=== PATIENT | male | born 2000 | race Caucasian/White ===

== ENCOUNTER 2023-04-15 16:21 | Outpatient (REF) | payer OTHER, SELFPAY ==
[2023-04-15 16:39] LABS: MANUAL DIFF FLAG NO
[2023-04-15 17:00] LABS: Basophils Percent Auto 0.4 % (0-2); Eosinophils Absolute Auto 0.1 X10*3/uL (0.0-0.4); Hemoglobin 14.9 g/dl (14.0-18.0); Imm Gran Abs Auto 0.01 X10*3/uL (0.00-0.03); Imm Gran Pct Auto 0.1 % (0.0-0.4); Lymphocytes Absolute Auto 1.9 X10*3/uL (1.2-4.9); Mean Corpuscular HGB Conc 34.7 g/dl (31.0-36.0); Mean Corpuscular Hemoglobin 30.7 pg (27.0-33.0); Mean Corpuscular Volume 88.7 fL (80.0-98.0); Mean Platelet Volume 10.6 fL (9.4-12.4); Monocytes Absolute Auto 0.4 X10*3/uL (0.1-1.2); Monocytes Percent Auto 4.6 % (2-11); Neutrophils Absolute Auto 5.9 x10*3/uL (2.0-8.3); Neutrophils Percent Auto 70.9 % (45-73); Platelet Count 203 X10*3/uL (160-400); Red Blood Count 4.85 X10*6/uL (4.60-5.80); Red Cell Distribution Width 11.6 % (11.0-16.0); White Blood Count 8.4 X10*3/uL (4.8-10.8)
[2023-04-15 17:26] LABS: Alanine Aminotransferase 14 U/L (0-40); Albumin Level 4.6 g/dL (3.5-5.0); Alkaline Phosphatase 67 U/L (39-117); Anion Gap 12 (12-20); Aspartate Amino Transferase 15 U/L (5-37); Bilirubin Total 0.5 mg/dL (0.0-1.0); Blood Urea Nitrogen 21 mg/dL (9-16); Calcium 9.5 mg/dL (8.4-10.2); Carbon Dioxide 26 mmol/L (22-29); Chloride 108 mmol/L (96-108); Cholesterol 154 mg/dL (<200); Estimated Glomerular Filt Rate > 60; Glucose Random 113 mg/dL (60-115); Potassium 3.7 mmol/L (3.3-5.1); Sodium 142 mmol/L (135-145)
[2023-04-15 17:40] LABS: Free T4 (Free Thyroxine) 0.84 ng/dL (0.71-1.85); Thyroid Stimulating Hormone 0.61 uIU/mL (0.32-4.0)
== END 2023-04-15 16:22 | disposition home or self-care (01) ==
LOC: HO.LAB 16:21
PROVIDERS: PCP Internal Medicine; Visit Provider Internal Medicine
DX: R63.4 Abnormal weight loss (principal); R00.2 Palpitations; M19.049 Primary osteoarthritis, unspecified hand
CPT/HCPCS: 36415; 80053; 82465; 84439; 84443; 85025

== ENCOUNTER 2023-08-25 14:40 | Outpatient (REF) | payer OTHER, SELFPAY ==
[2023-08-25 15:38] LABS: Estimated Average Glucose 100 mg/dL; Hemoglobin A1c % 5.1 % (<6.0)
[2023-08-25 15:39] LABS: Appearance Urine Clear; Color Urine Yellow; Glucose Urine UA Negative (Negative); Leukocyte Esterase Urine Negative (Negative); Nitrite Urine Negative (Negative); PH 6.5 (5.0-9.0); Urine Blood Negative (Negative); Urine Ketones Negative (Negative); Urine Protein Negative (Neg-Trace)
[2023-08-25 16:06] LABS: Anion Gap 13 (12-20); Blood Urea Nitrogen 21 mg/dL (9-16); Calcium 9.7 mg/dL (8.4-10.2); Carbon Dioxide 26 mmol/L (22-29); Chloride 105 mmol/L (96-108); Estimated Glomerular Filt Rate > 60; Glucose Random 80 mg/dL (60-115); Sodium 140 mmol/L (135-145)
== END 2023-08-25 14:41 | disposition home or self-care (01) ==
LOC: HO.LAB 14:40
PROVIDERS: PCP Internal Medicine; Visit Provider Internal Medicine
DX: R63.5 Abnormal weight gain (principal); R35.0 Frequency of micturition
CPT/HCPCS: 36415; 80048; 81003; 83036; 87086

== ENCOUNTER → 2024-03-20 07:31 | Outpatient (BNVA) | payer SELFPAY | PROVIDERS: PCP Internal Medicine; Visit Provider Registered Nurse | DX: Z02.79 Encounter for issue of other medical certificate (principal) ==

== ENCOUNTER 2025-05-23 15:15 | Outpatient (REF) | payer OTHER, SELFPAY ==
[2025-05-23 15:57] LABS: MANUAL DIFF FLAG NO
[2025-05-23 18:27] LABS: Hematocrit 45.5 % (42.0-52.0); Hemoglobin 15.6 g/dl (14.0-18.0); Imm Gran Abs Auto 0.02 X10*3/uL (0.00-0.03); Imm Gran Pct Auto 0.3 % (0.0-0.4); Lymphocytes Absolute Auto 2.3 X10*3/uL (1.2-4.9); Mean Corpuscular HGB Conc 34.3 g/dl (31.0-36.0); Mean Corpuscular Hemoglobin 30.6 pg (27.0-33.0); Mean Corpuscular Volume 89.2 fL (80.0-98.0); NRBC Abs Auto 0.000 X10*3/uL (0.0-0.012); NRBC Pct Auto 0.0 /100WBC (0.0-0.2); Platelet Count 209 X10*3/uL (160-400); Red Blood Count 5.10 X10*6/uL (4.60-5.80); White Blood Count 6.9 X10*3/uL (4.8-10.8)
[2025-05-23 18:29] LABS: Alanine Aminotransferase 33 U/L (0-40); Albumin Level 5.1 g/dL (3.5-5.0); Alkaline Phosphatase 74 U/L (39-117); Anion Gap 13 (12-20); Aspartate Amino Transferase 35 U/L (5-37); Blood Urea Nitrogen 22 mg/dL (9-16); Calcium 9.6 mg/dL (8.4-10.2); Carbon Dioxide 27 mmol/L (22-29); Chloride 104 mmol/L (96-108); Cholesterol 178 mg/dL (<200); Estimated Glomerular Filt Rate > 60; HDL Cholesterol 69 mg/dL (>40); Potassium 3.5 mmol/L (3.3-5.1); Sodium 140 mmol/L (135-145); Total Protein 7.3 g/dL (6.5-8.0); Triglycerides 63 mg/dL (<150)
[2025-05-24 08:11] LABS: Syphilis Screen Nonreactive (Nonreactive)
[2025-05-24 08:32] LABS: HBS Num1 0.00 mIU/mL (0-7.99); HBc Num1 0.07 S/CO (0.00-0.79); HBsAGNum1 0.39 S/CO (0.00-0.99); Hepatitis A Antibody IgM 0.19 Index (0-0.79); Hepatitis B Surface Antigen Negative (Negative); ~HepC Num1 0.15 S/CO (0.00-0.79); ~Hepatitis A Antibody IgM Nonreactive (Nonreactive); ~Hepatitis B Surface Antibody NONREACTIVE (Nonreactive); ~Hepatitis C Antibody Nonreactive (Nonreactive)
[2025-05-24 08:52] LABS: HIV Num 1 0.08 S/CO (0.00-0.99)
== END 2025-05-23 15:16 | disposition home or self-care (01) ==
LOC: HO.LAB 15:15
PROVIDERS: PCP Student in an Organized Health Care Education/Training Program; Visit Provider Student in an Organized Health Care Education/Training Program
DX: Z00.00 Encounter for general adult medical examination without abnormal findings (principal); R21 Rash and other nonspecific skin eruption; F41.9 Anxiety disorder, unspecified; F32.A Depression, unspecified; Z79.899 Other long term (current) drug therapy
CPT/HCPCS: 36415; 80053; 80061; 82306; 82570; 83036; 84443; 85025; 86704; 86706; 86709; 86780; 86803; 87340; 87389; 96127

== ENCOUNTER 2025-05-23 15:15 | Outpatient (AMB) | payer OTHER, SELFPAY ==
--- NOTE | 2025-05-23 15:17 | A.OFFPC_ITS ---
Vital Signs 05/23/25 15:24 Height 5 ft 4 in Weight 135 lb BMI 23.2 BP 124/64 Blood Pressure Location Lt brachial Position Sitting Respiration 16 Pulse 84 Pulse Source Pulse Oximeter Temp 98.8 F Temp Source Temporal Artery Scan Pulse Oximetry (%) 97 Oxygen Delivery Method Room Air Intake Visit Reasons: Eriberto pt/KARLEE Ocean [employer]ologist Required: No Accompanied by: Self / Same As Patient Allergies No Known Allergies (No Known Allergies*) Allergy (Verified 05/23/25 15:18) Medication List - Last Reconciled 05/23/25 by Chadwick Mcginnsi MD No Known Home Meds Tobacco use date assessed: 05/23/25 Dental Screening Dental Screen Date: 05/23/25 Did you have a dental visit in the last 12 months?: Yes Did you have a dental problem in the last 6 months where you did not have access to dental care?: No Was dental information given to patient?: Patient has dentist HPI HPI Comments History of Present Illness Details History of Present Illness The patient is a 25 year old male presenting for an annual physical and evaluation of a worsening chest rash. He reports the rash has been present for a few years and has recently worsened. The rash is itchy, and a rub-on cream seemed to exacerbate it, while a spray containing Manuka honey and tea tree oil has been helping. He notes that when he sprays the medication, the redness moves to the periphery of the rash. He previously had a similar rash in his armpit, which has since resolved. The patient has tried various body soaps and bed sheets but has not tried changing his laundry detergent or using anti-allergenic medications. The patient's past medical history is significant for epididymitis and a varicocele repair during the eighth grade. He reports getting yearly physicals with his prior provider, Dr. Montes. He had a lapse in care due to an insurance change but recently obtained new insurance through his employer in May. Based on screening questionnaires, he meets criteria for mild depression (PHQ-9 score of 4) and mild anxiety (ARIANE-7 score of 5), but he is not interested in medication and denies feeling depressed. He reports having his own house and denies any thoughts of self-harm. Medical History: - History of epididymitis - Mild depression - Mild anxiety - Seasonal allergies, mild Surgical History: - Varicocele repair in the eighth grade Medications: - Antifungal spray with Manuka honey and tea tree oil for chest rash Family History: - Mother: Diabetes - Grandfather: Lung cancer, history of s moking Diagnostic Results: - PHQ-9: Score of 4, indicating mild dep ression - ARIANE-7: Score of 5, indicating mild anx iety Social History - Occupation: Works in construction and welding, which involves a lot of sweating. - Housing: Reports having his own house and a safe place to live. - Tobacco use: Denies ever smoking. - Alcohol use: Drinks rarely, about one to two drinks a couple of times a month. - Illicit drug use: Denies use of mariju shelbi, heroin, or cocaine. Health Maintenance - Advised to obtain COVID and flu vaccin ations. - Baseline lab work ordered including el ectrolytes, glucose, hepatitis panel, HIV, lipids, syphilis screen, thyroid function, and vitamin D levels. - Follow up annually for physical exams. Patient was informed and verbally consented to the use of an ambient scribe for clinic note documentation during this visit. Vital signs reviewed. Comprehensive history, review of systems, and physical exam completed. Medications, allergies, and problem list reviewed and updated. Counseling provided on nutrition, regular exercise, sleep hygiene, and moderation of alcohol use. Discussed age-appropriate screenings (mammogram, colonoscopy, Pap, bone density) and immunizations (flu, COVID, shingles, Tdap). Screened for depression, fall risk, and home safety; no current concerns. Discussed stress management, dental and vision care, and importance of ongoing preventive follow-up. Routine labs ordered for metabolic and lipid screening. Patient educated on healthy lifestyle and agrees with the plan. [facility] Medical History (Updated 05/23/25 @ 15:48 by Chadwick Mcginnis MD) Annual physical exam Anxiety and depression Rash Social History Housing: House Patient Tobacco Use Status: Never used Tobacco e-Cigarette/Vaping Use: Never Used service: No Current occupational status: employed Current occupation: [employer] Questionnaire PHQ-9 Over the last 2 weeks, how often have you been bothered by any of the following problems? 1. Little interest or pleasure in doing things: not at all 2. Feeling down, depressed, or hopeless: not at all 3. Trouble falling or staying asleep, or sleeping too much: several days 4. Feeling tired or having little energy: several days 5. Poor appetite or overeating: not at all 6. Feeling bad about yourself - or that you are a failure or have let yourself or your family down: not at all 7. Trouble concentrating on things, such as reading the newspaper or watching television: several days 8. Moving or speaking so slowly that other people could have noticed. Or the opposite - being so fidgety or restless that you have been moving around a lot more than usual: several days 9. Thoughts that you would be better off or of hurting yourself in some way: not at all Total score: 4 Source: Developed by Drs. Bert Balderas, Teena Petit, Star Garcia and colleagues, with an educational rafael from [employer]. Thrive Questionnaire Date Thrive assessed: 05/23/25 I am a: Patient What is your living situation today?: I have a steady place to live Within the past 12 months, did the food you bought not last and you didn't have the money to get more?: Never true Within the past 12 months, did you worry whether your food would run out before you got money to buy more?: Never true Do you have trouble paying for medicines?: No Do you have trouble getting transportation to medical appointments?: No Do you have trouble paying your heating and electricity bill?: No Do you have trouble taking care of your child, family member or friend?: No Do you have trouble with day-to-day activities such as bathing, preparing meals, shopping, managing finances, etc.?: No Are you currently unemployed and looking for a job?: No Are you interested in more education?: No THRIVE Score: 0 AUDIT C Alcohol Use Questionnaire (AUDIT-C) 1. How often do you have a drink containing alcohol?: 2-4 times a month 2. How many drinks containing alcohol do you have on a typical day when you are drinking?: 1 or 2 3. How often do you have six or more drinks on one occasion?: Never Total Score: 2 Score Reviewed/Action Taken: Yes ARIANE-7 AMB Questionnaire ARIANE-7 Date ARIANE - 7 assessed: 05/23/25 Feeling nervous, anxious, or on edge: 1 = Several days Not being able to stop or control worryin = Several days Worrying too much about different things: 1 = Several days Trouble relaxin = Several days Being so restless that it is hard to sit still: 1 = Several days Becoming easily annoyed or irritable: 0 = Not at all Feeling afraid as if something awful might happen: 0 = Not at all Total ARIANE-7 score (0-4 normal; 5-9 mild; 10-14 moderate; 15-21 severe): 5 Source: Developed by Drs. Bert Balderas, Teena Petit, Star Garcia and colleagues, with an educational rafael from [employer]. ARIANE-7 Assessment Billing ARIANE-7 Assessment Tool: ARIANE-7 Assessment 29453 Review of Systems Narrative Review of Systems - General: Denies current complaints or concerns other than his rash. - Integumentary: Reports an itchy rash on his chest that has been present for a few years and has worsened. - Gastrointestinal: Denies nausea or vomiting; reports normal bowel and bladder function. - Cardiovascular: Denies chest pain. - Respiratory: Denies shortness of breath. - Neurological: Denies headaches. - Psychiatric: Denies feeling depressed, down, or low, despite screening scores indicating mild depression and anxiety. Denies thoughts of self-harm. - Allergic/Immunologic: Denies known allergies. Reports mild seasonal allergies. All systems reviewed & are unremarkable except as reviewed in HPI and above Physical exam (Primary Care) Vital Signs: Last Vital Signs Temp 98.8 F 05/23/25 15:24 Pulse 84 05/23/25 15:24 Resp 16 05/23/25 15:24 BP 124/64 05/23/25 15:24 Pulse Ox 97 05/23/25 15:24 Oxygen Delivery Method Room Air 05/23/25 15:24 BMI result Body Mass Index 23.2 Tobacco/Smoking Status: Tobacco use Status Tobacco use date assessed 05/23/25 05/23/25 15:20 Patient Tobacco Use Status Never used Tobacco 05/23/25 15:26 e-Cigarette/Vaping Use Never Used 05/23/25 15:26 PHQ-9: PHQ-9 Score PHQ-9: Total score 4 05/23/25 15:48 Thrive Assessment: Date of Thrive Assessment Date Thrive assessed 05/23/25 05/23/25 15:36 Narrative Physical Exam General: +Alert and oriented, Well nourished, No acute distress. Eye: Pupils are equal, round and reactive to light, Intact accommodation, Extraocular movements are intact, Normal conjunctiva, Vision unchanged. HENT: Normocephalic, Atraumatic, Tympanic membranes are clear, Normal hearing, Oral mucosa is moist, No pharyngeal erythema, Ear canals patent. Respiratory: Lungs CTA bilaterally, No wheeze, Respirations are non-labored. Cardiovascular: Regular rate, Regular rhythm, S1 auscultated, S2 auscultated, No murmur, Good pulses equal in all extremities, Normal peripheral perfusion, No edema. Gastrointestinal: Soft, Non-tender, Non-distended, Normal bowel sounds, No organomegaly. Musculoskeletal: Normal range of motion, Normal strength, No tenderness, No swelling, No deformity, Normal gait. Integumentary: Warm, Dry, [place], Intact, Rash present on chest, described as small bumps, possibly contact dermatitis or tinea corporis. Neurologic: Alert, Oriented, Normal sensory, Normal motor function, No focal defects, Cranial Nerves II-XII are grossly intact, Normal deep tendon reflexes. Psychiatric: Cooperative, Appropriate mood & affect, Normal judgment, Meets criteria for mild depression and mild anxiety. Coding Level of Care Code New Pt Prev Care 18-39yr(26694 Diagnoses Rash R21 Anxiety and depression F41.9; F32.A Annual physical exam Z00.00 Additional Codes ARIANE-7 Assessment Billing - ARIANE-7 Assessment Tool: ARIANE-7 Assessment 82023 ([id number]) Assessment & Plan Assessment & Plan (1) Rash: Comment: - The patient presents with a chronic, itchy rash on his chest. - He identified a picture of tinea corporis as being consistent with his rash at its worst. - While contact dermatitis is a possibility, the appearance is very suggestive of a fungal infection. - An hyvq-dyv-phcdbsk antifungal cream will be recommended. - The patient is instructed to use it twice a day for 2-4 weeks and to continue for one week after the rash clears. - If the topical treatment is ineffective, oral medications such as terbinafine or ketoconazole will be considered. Code(s): R21 - Rash and other nonspecific skin eruption Category: Medical (2) Anxiety and depression: Comment: - The patient's PHQ-9 and ARIANE-7 scores indicate mild depression and anxiety, respectively. - He denies feeling depressed and is not interested in pharmacotherapy at this time. - The plan is to monitor, as he denies suicidality and has stable housing. Code(s): F41.9 - Anxiety disorder, unspecified; F32.A - Depression, unspecified Category: Medical (3) Annual physical exam: Comment: - Baseline blood work will be obtained, including electrolytes, glucose, hepatitis panel, HIV, lipids, syphilis screen, thyroid function, and vitamin D levels. - The patient has been advised to get his COVID and flu shots. - He will follow up annually for physical exams. Code(s): Z00.00 - Encounter for general adult medical examination without abnormal findings Category: Medical Plan: Health Maintenance: - Advised to obtain COVID and flu vaccinations. - Baseline lab work ordered including electrolytes, glucose, hepatitis panel, HIV, lipids, syphilis screen, thyroid function, and vitamin D levels. - Follow up annually for physical exams. Patient was informed and verbally consented to the use of an ambient scribe for clinic note documentation during this visit. Vital signs reviewed. Comprehensive history, review of systems, and physical exam completed. Medications, allergies, and problem list reviewed and updated. Counseling provided on nutrition, regular exercise, sleep hygiene, and moderation of alcohol use. Discussed age-appropriate screenings (mammogram, colonoscopy, Pap, bone density) and immunizations (flu, COVID, shingles, Tdap). Screened for depression, fall risk, and home safety; no current concerns. Discussed stress management, dental and vision care, and importance of ongoing preventive follow-up. Routine labs ordered for metabolic and lipid screening. Patient educated on healthy lifestyle and agrees with the plan. Plan I discussed with the patient that his chronic chest rash appears to be tinea corporis, a fungal infection, based on his description and how it looked previously. I recommended he start with an nydc-ntf-mjkgavx antifungal cream, applying it twice daily for 2 to 4 weeks, and continuing for one week after it clears. I informed him that if this treatment does not work, we would consider oral medications and he should call us to let us know. We also reviewed his screening results which indicated mild depression and anxiety. I noted that these scores would technically warrant medication, but he expressed he was not interested at this time. I ordered baseline blood work and advised him to go to the hospital lab across the street for the draw. I explained that he would be called if anything was abnormal, otherwise no news is good news. We discussed the importance of vaccinations like the COVID and flu shots and planned for him to follow up annually. Orders: Orders Comprehensive Met. Panel Today Z00.00 - Encounter for general adult medical examination without abnormal findings Hemoglobin A1c Today Z00.00 - Encounter for general adult medical examination without abnormal findings Hepatitis A,B,C Profile Today Z00.00 - Encounter for general adult medical examination without abnormal findings TSH reflex Free T4 Today Z00.00 - Encounter for general adult medical examination without abnormal findings Vitamin D 25-OH Total Today Z00.00 - Encounter for general adult medical examination without abnormal findings Complete Blood Count Auto Diff Today Z00.00 - Encounter for general adult medical examination without abnormal findings HIV Ab/Ag Today Z00.00 - Encounter for general adult medical examination without abnormal findings Lipid Panel Today Z00.00 - Encounter for general adult medical examination without abnormal findings Microalbumin, Random (w Creat) Today Z00.00 - Encounter for general adult medical examination without abnormal findings Syphilis Screen Today Z00.00 - Encounter for general adult medical examination without abnormal findings Medications: New terbinafine HCl 1% 1 appl topical BID 30 grams 0RF 4 weeks Patient Instructions: - For your chest rash, please use the bgou-esu-seetvwq antifungal cream as we discussed. Apply it twice a day for at least 2-4 weeks. - Even after the rash goes away, continue using the cream for one more week to make sure the infection is fully treated. - If the rash does not get better with the cream, please call our office, and we can prescribe an oral medication. - Please go to the hospital lab across the street to have your blood work done. They close at noon. - We will call you if any of your lab results are abnormal. If you do not hear from us, it means your results are normal. - Make sure you are up-to-date with your COVID and flu shots. - We will see you back in one year for your next annual check-up.
[2025-05-23 15:24] VITALS: BP 124/64; PULSE 84; RESP 16; TEMP 37.1; O2SAT 97; BMI 23.2
--- OUTSIDE RECORDS SUMMARY | 2025-05-23 22:50 | XMS_ITS | Clinical Summary ---
Author Organization [facility] Address [address] [place] [id number] Phone Care Team Providers Care Laundromat Manager Name Role Phone Feroz Humphreys MD Primary Care Provider [phone] Allergies No known active allergies Medications sertraline 25 MG tabletIndicatio ns:Anxiety TAKE ONE TABLET BY MOUTH EVERY DAY 30 tablet 1 Active Additional Information Patient not taking.Reported on 06/26/2021 sertraline 50 MG tablet 1 Active Active Problems Problem Noted Date Diagnosed Date Bilateral hand pain 10/09/2020 Assessment & Plan (10/09/2020 5:32 PM EDT): Discussed stretching techniques and rest, can use ice. If this does not help would go to physical therapy. Obstructive sleep apnea 10/09/2020 Overview (12/23/2020): 11/17/2020 - Sleep study showing mild obstructive sleep apnea. Referral to [facility]. Assessment & Plan (12/23/2020 3:42 PM EDT): 11/17/2020 - Sleep study showing mild obstructive sleep apnea. Generalized anxiety disorder 05/15/2015 Overview (04/18/2018): Anxiety, generalized (300.02) Onset: 05/15/2015 Added by: Emily Washington Resolved Problems Problem Noted Date Diagnosed Date Resolved Date Mild cognitive impairment 01/01/2016 Overview (04/18/2018): Mild cognitive impairment, so stated (331.83) Onset: 01/01/2016 Added by: Feroz Humphreys Immunizations Immunization Administration Dates Next Due DTaP 5 02/18/2003, 0,1998,06/16,1998 Hep B, ped/adol 1998,1998,1998 Hib (PRP-T) 05/14/1999, 9,1998,04/09 IPV 02/18/2003, 0,1998,04/09 Influenza, injectable, MDCK, preservative free, quadrivalent 04/12/2020 Influenza, injectable, quadr ivalent, preservative free 04/18/2018,07/20/2017,04/12/2015 Influenza, intranasal, quadrivalent 04/02/2013 Influenza, intranasal, trivalent 014,05/05/2012,05/05/2011,03/26,03/25/2009,03/21/2008 MMR 02/18/2003,02/10/1999 Meningococcal Conj (Menactra) MCV4P 06/10/2015,1 Pneumococcal Conjugate 02/05/2000 Td (adult) (MBL), 2 Lf tetan us toxoid, PF, adsorbed 10/06/2018 Tdap 08/10/2019,03/25/2009 Varicella 03/25/2009,02/10/1999 Family History Medical History Relation Name Comments No Known Problems Father Aashish No Known Problems Maternal Grandfather No Known Problems Maternal Grandmother No Known Problems Mother Shaye No Known Problems Paternal Grandfather No Known Problems Paternal Grandmother Relation Name Status Comments Father Aashish Alive Maternal Grandfather Maternal Grandmother Mother Shaye Alive Paternal Grandfather Paternal Grandmother Social History Tobacco Use Types Packs/Day Years Used Date Smoking Tobacco: Never Smokeless Tobacco: Never Comments:Never Smoker Hunger/Food Answer Date Recorded In the last 12 months, did y ou or your family ever eat less than you felt you should because there wasn't enough money for food? No 10/10/2020 Stable Housing Answer Date Recorded Are you worried that in the next 2 months you may not have stable housing? No 10/10/2020 Transportation Concerns Answer Date Rec orded In the last 12 months, have you or your family ever had to go without healthcare because you didn't have a way to get there? No 10/10/2020 Hazards in Home Answer Date Recorded Think about the place you li ve. Do you have problems with any of the following? Pests (mice or roaches), mold, no/not working smoke detectors, water leaks, no window guards. No 2020 Financing Utilities Answer Date Recorde d In the last 12 months, has t he electric, gas, oil, or water company threatened to shut off your services in your home? No 10/10/2020 Safety at Home Answer Date Recorded Are you or your family worried about feeling saf e in your home? No 10/10/2020 Outside Support Answer Date Recorded Do you feel that you need mo re support from other people or programs to help you care for yourself or your family? No 10/10/2020 Understanding Health Concerns Answer Da te Recorded Do you need help understandi ng your or your child's healthcare needs (diagnosis, medications, plan, etc.)? No 10/10/2020 Financing Health Concerns Answer Date R ecorded In the last 12 months, was t here a time when your child needed to see a doctor or get medications or supplies but could not because of cost? No 10/10/2020 Missing School or Work Answer Date Ben rded Did you or your child miss s chool or work because of a health problem that could have been avoided? No 10/10/2020 Sex and Gender Information Value Date Recorded Sex Assigned at Not on file Legal Sex Male 6:42 PM EDT Gender Identity Not on file Sexual Orientation Not on file Last Filed Vital Signs Vital Sign Reading Time Taken Comments Blood Pressure 98/60 06/26/2021 3:43 PM EST Pulse 76 06/26/2021 3:43 PM EST Temperature 37.1 C (98.8 F) 06/26/2021 3:43 PM EST Respiratory Rate - - Oxygen Saturation - - Inhaled Oxygen Concentration - - Weight 71.2 kg (157 lb) 06/26/2021 3:43 PM EST Height 162.6 cm (5' 4 ) 06/26/2021 3:43 PM EST Body Mass Index 26.95 06/26/2021 3:43 PM EST Plan of Treatment Health Maintenance Due Date Last Done Comments Influenza Vaccines (#1) 2025 04/12/20 20, 04/18/2018, 07/20/2017, Additional history exists HPV Vaccines (1 - 3-dose SCDM series) 2025 COVID-19 Vaccine ( season) 2025 11/12/2020, 10/14/2020 DTaP,Tdap,and Td Vaccines (9 - Td or Tdap) 08/10/2029 08/10/2019, 10/06/2018, 03/25/2009, Additional history exists Hepatitis B Vaccines Completed 1998, 1998, 1998 HIB Vaccines Completed 05/14/1999, 07/15, 1998, Additional history exists Pneumococcal Vaccine Completed 02/05/2000 IPV Vaccines Completed 02/18/2003, 12/1999, 1998, Additional history exists MMR Vaccines Completed 02/18/2003, 02/10/1999 Varicella Vaccines Completed 03/25/2009, 02/10/1999 Meningococcal Vaccine Completed 06/10/2015, 009 Hepatitis A Vaccines Aged Out No long er eligible based on patient's age to complete this topic Men B Vaccine Aged Out No longer elig ible based on patient's age to complete this topic Insurance [facility] Care Teams Laundromat Manager Relationship Specialty Start Date End Date Feroz Humphreys MD [facility] [place] [id number] PCP - General 10/19/17
--- OUTSIDE RECORDS SUMMARY | 2025-05-23 22:50 | XMS_ITS | Encounter Summary ---
Author Organization [facility] Address [address] [facility] [address] [place] [id number] Phone Care Team Providers Care Sales Operations Director Name Role Phone Herbert Mead MD Primary Care Provider [phone] Unknown, Unknown Primary Care Provider Melecio solano Encounter Details Date Type Department Care Team (Late st Contact Info) Description 06/01/2022 Procedure [facility], [address] [address] Social History Tobacco Use Types Packs/Day Years Used Date Smoking Tobacco: Never Smokeless Tobacco: Never Alcohol Use Standard Drinks/Week Comments Yes 0 (1 standard drink = 0.6 oz pur e alcohol) once every 2 weeks Child or Family Care Answer Date Record ed Do you have problems with on e of the following making it difficult for you to work, study, or receive health care? No 08/28/2021 Education Answer Date Recorded Are you interested in help w ith more adult education (for example, completing high school, GED, job training, learning the [place] language, technical skills, or developing parenting skills)? No 08/28/2021 Are you concerned about learning? Not on file 08/28/2021 Not on file 08/28/2021 Not on file 08/28/2021 Food Answer Date Recorded Within the past 6 months we worried whether our food would run out before we got money to buy more. Never True 08/28/2021 Within the past 6 months the food we bought just didn't last and we didn't have enough money to get more. Never True Paying for Meds Answer Date Recorded Do you have trouble paying for medicines? No 08/28/2021 Paying Utility Bills Answer Date Record ed Do you have trouble paying your heating or elect ricity bill? No 08/28/2021 Transportation Answer Date Recorded Has the lack of transportati on kept you from medical appointments or from getting medications? No 08/28/2021 Sex and Gender Information Value Date Recorded Sex Assigned at Male 09/03/2022 3:36 PM EDT Legal Sex Male 12:03 PM EST Gender Identity Male 09/03/2022 3:36 PM EDT Sexual Orientation Straight 09/03/2022 3: 36 PM EDT documented as of this encounter Plan of Treatment Not on file documented as of this encounter Visit Diagnoses Not on filedocumented in this encounter Additional Health Concerns Assessment Noted Time PHQ-2 Depression Total Score: 0 08/29/19 22 2:39 PM EDT documented as of this encounter Care Teams Sales Operations Director Relationship Specialty Start Date End Date Herbert Mead MD [address] [place] [address] [email or web address] PCP - General Internal Medicine 06/25/21 03/27/23 Unknown, Unknown, PCP - General 03/28/23 documented as of this encounter Additional Source Comments The information contained in this document represents components of the legal health record. It is not the complete legal health record.[facility]
--- OUTSIDE RECORDS SUMMARY | 2025-05-23 22:50 | XMS_ITS | Encounter Summary ---
Author Organization [facility] Address [address] [place] [phone] Phone Care Team Providers Care Promotions Representative Name Role Phone Feroz Humphreys MD Primary Care Provider [phone] Encounter Details Date Type Department Care Team (Late st Contact Info) Description 10/19/2010 Conversion Encounter [facility] [address] [place] [address] [place] [address] Social History Tobacco Use Types Packs/Day Years Used Date Smoking Tobacco: Never Assessed Sex and Gender Information Value Date Recorded Sex Assigned at Not on file Legal Sex Male 6:42 PM EDT Gender Identity Not on file Sexual Orientation Not on file documented as of this encounter Plan of Treatment Not on file documented as of this encounter Visit Diagnoses Not on filedocumented in this encounter Care Teams Promotions Representative Relationship Specialty Start Date End Date Feroz Humphreys MD [address] [place] [address] [place] [id number] PCP - General 10/19/17 documented as of this encounter
--- OUTSIDE RECORDS SUMMARY | 2025-05-23 22:50 | XMS_ITS | Clinical Summary ---
Author Organization [facility] Address [address] [facility] [address] [place] [phone] Phone Care Team Providers Care Circuit Rider Name Role Phone Unknown, Unknown Primary Care Provider Melecio solano Allergies No known active allergies Medications No known medications Active Problems Problem Noted Date Diagnosed Date Right upper quadrant abdominal pain 12/15/2022 Assessment & Plan (12/15/2022 11:41 AM EDT): The exam was benign, no need for a CT scan though I gave him some information to look into namely if he is having pain in the right and left upper quadrants trial of Maalox and see if that helps. In the past omeprazole cause nausea vomiting so we took him off of. If the problem persists we can pursue a CT scan or right upper quadrant ultrasound. Particularly if it is postprandial after a fat laden meal we would pursue the ultrasound. It sounds as if the problem is more musculoskeletal. Right ear impacted cerumen 12/15/2022 Assessment & Plan (12/15/2022 11:38 AM EDT): Both ears feel blocked but the right one has cerumen impaction. I think superimposed on the cerumen impaction he might also have a little bit of eustachian tube dysfunction for cold that he just had ending this week. Advised hydrogen peroxide right ear 5 drops apply and let sit for about an hour before removal. Dyspepsia 09/03/2022 Assessment & Plan (09/17/2022 4:33 PM EDT): Labs looking normal, dyspepsia worse with the omeprazole, patient will trial OTC Pepcid 10 to 20 mg p.o. twice daily and will be more consequent about avoiding lactate containing foods. Would recommend at this does not resolve could consider Protonix but then he should follow-up with gastroenterology. Assessment & Plan (09/03/2022 4:17 PM EDT): With the dyspepsia we will start the patient on PPI 20 mg of omeprazole. We will follow-up in 14 days. Consider GI consult going forward. Left wrist pain 02/05/2022 Assessment & Plan (02/05/2022 5:00 PM EDT): Presumption of bilateral left much worse than right carpal tunnel syndrome. Patient referred to [facility] and surgery. We recommend continuing to wear the wrist protectors with splint in place. Routine general medical exam ination at a health care facility 08/28/2021 Assessment & Plan (09/03/2022 4:19 PM EDT): Exam positive for tachycardia with regular rhythm, the dyspepsia with frequent belching and the aforementioned history of elevated blood sugars. We will obtain a Chem-12 CBC lipid profile and hemoglobin A1c. Referral to [facility] endocrinology with the elevated A1c that is expected especially with the symptoms of hyperglycemia present. Patient does drink water and ice tea so I have asked him to only drink sugar- free ice tea if he wishes and stay away from liquid calories. Discussed with him the main points of eating as a diabetic specifically to lower starch and sugar intake and that which has starch should be entrapped in a lot of fiber or sugar for example apples versus apple juice. Sweet potatoes versus potatoes. Assessment & Plan (08/28/2021 3:42 PM EDT): Exam was unremarkable. Skin of the back negative for any suspicious lesions heart currently regular rate and rhythm no murmurs appreciated and lungs are clear to auscultation. 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 He will come back later on for physical exam with labs fasting. I will see him back in 1 years time. Immunizations Immunization Administration Dates Next Due Dtap, 5 Pertussis Antigens 02/18/2003,,1998,06/16,1998 Hepatitis B 1998,1998,1998 Hib,PRP-T 05/14/1999, 9,1998,04/09 IPV 02/18/2003, 0,1998,04/09 Influenza Quadrivalent Intranasal 04/02/2013 Influenza Quadrivalent MDCK Preservative Free IM 04/12/2020 Influenza Quadrivalent Prese rvative Free IM 04/18/2018,07/20/2017,04/12/2015 Influenza quadrivalent nasal 03/30/2014, 05/05/2012,05/05/2011,03/26,03/25/2009,03/21/2008 MMR 02/18/2003,02/10/1999 Meningococcal MCV4P 06/10/2015,03/25/2009 Pneumococcal conjugate, PCV 7 02/05/2000 Td (adult),2 Lf Tetanus Toxo id, PF, Adsorbed 10/06/2018 Tdap 08/10/2019,03/25/2009 Varicella 03/25/2009,02/10/1999 Family History Relation Status Comments Father Alive Mother Alive Social History Tobacco Use Types Packs/Day Years Used Date Smoking Tobacco: Never Passive Smoke Exposure: Never Smokeless Tobacco: Never Tobacco Cessation:Counseling Given: Not Answered Alcohol Use Standard Drinks/Week Comments Yes 0 (1 standard drink = 0.6 oz pur e alcohol) once every couple of months Child or Family Care Answer Date Record ed Do you have problems with on e of the following making it difficult for you to work, study, or receive health care? No 09/03/2022 Education Answer Date Recorded Are you interested in more education? Not on deepti e 09/06/2024 Are you concerned about learning? Not on file 09/06/2024 No 09/06/2024 No 09/06/2024 Food Answer Date Recorded Within the past 6 months we worried whether our food would run out before we got money to buy more. Never True 09/03/2022 Within the past 6 months the food we bought just didn't last and we didn't have enough money to get more. Never True Residential Stability Answer Date Recor ded What is your housing situation today? I have taye joel 09/03/2022 How many times have you move d in the past 12 months? Zero (I did not move) 09/03/2022 Paying for Meds Answer Date Recorded Do you have trouble paying for medicines? No 09/03/2022 Paying Utility Bills Answer Date Record ed Do you have trouble paying your heating or elect ricity bill? No 09/03/2022 Transportation Answer Date Recorded Has the lack of transportati on kept you from medical appointments or from getting medications? No 09/03/2022 Unemployment Answer Date Recorded Are you currently unemployed or working on a part-time or temporary basis, and looking for work? No 09/03/2022 Digital Access Answer Date Recorded No 11/06/2022 No 11/06/2022 Reliable internet access at home? Not on file 11/06/2022 Device with a working camera? Not on file Intimate Partner Violence Answer Date R ecorded Denied Basic Needs Not on file 09/03/2022 In the past 12 months have y ou been in a relationship with a person who hurts, threatens, or tries to control you? No 09/03/2022 Worried food would run out Not on file 09/03 In the past 12 months have y ou been in a relationship with a person who hurts, threatens, or tries to control you? No 09/03/2022 Sex and Gender Information Value Date Recorded Sex Assigned at Male 09/03/2022 3:36 PM EDT Legal Sex Male 12:03 PM EST Gender Identity Male 09/03/2022 3:36 PM EDT Sexual Orientation Straight 09/03/2022 3: 36 PM EDT Last Filed Vital Signs Vital Sign Reading Time Taken Comments Blood Pressure 116/60 09/17/2022 4:00 PM EDT Pulse 95 09/17/2022 4:00 PM EDT Temperature 37.2 C (99 F) 09/17/2022 4:00 PM EDT Respiratory Rate 16 02/05/2022 4:22 PM EDT Oxygen Saturation 97% 09/17/2022 4:00 PM EDT Inhaled Oxygen Concentration - - Weight 62.1 kg (137 lb) 09/17/2022 4:00 PM EDT Height 162.6 cm (5' 4 ) 09/17/2022 4:00 PM EDT Body Mass Index 23.52 09/17/2022 4:00 PM EDT Plan of Treatment Health Maintenance Due Date Last Done Comments DEPRESSION SCREENING 09/04/2023 09/03/2022 SMOKING STATUS SCREENING (Once After 26 Yrs) 02/04/2024 INFLUENZA VACCINE (#1) 2025 , 04/18/2018, 07/20/2017, Additional history exists COVID-19 VACCINE ( season) 2025 11/12/2020, 10/14/2020 Adult Td,Tdap Booster 08/10/2029 08/10/2019 , 10/06/2018, 03/25/2009 HIB VACCINES Completed 05/14/1999, 07/15, 1998, Additional history exists PNEUMOCOCCAL VACCINES (0-49 years) Aged Out 02/05/2000 No longer eligible based on patient's age to complete this topic MENINGOCOCCAL VACCINES (ACWY) Completed 06/10/2015, 03/25/2009 HEPATITIS C SCREENING Completed 09/03/2022 HIV ONE-TIME SCREENING (18-65 YEARS) Completed 09/03/2022 HEPATITIS A VACCINES Aged Out No long er eligible based on patient's age to complete this topic MENINGOCOCCAL VACCINES (B) Aged Out N o longer eligible based on patient's age to complete this topic Medical Devices Not on file Procedures Procedure Name Priority Date/Time Associated Diagnosis Comments HEPATITIS C ANTIBODY, QUALITATIVE Routine 09/03/2022 4:11 PM EDT Need for hepatitis C screening test from Last 3 Months or Most Recently Relevant to Health Maintenance Results * Hepatitis C antibody, qualitative (09/03/2022 4:11 PM EDT) HCV NON-REACTIV E NON-REACTI VE [facility] Blood 09/03/2022 4:11 PM EDT 09/03/2022 4:18 PM EDT us Herbert Mead MD LAB BLOOD BKR ORDERABLES Final R esult [facility] [address] [place] [address] from Last 3 Months or Most Recently Relevant to Health Maintenance Insurance UNITED R UNITED R [place] [id number] UNITED R UNITED [facility] UNITED R [facility] Care Teams Circuit Rider Relationship Specialty Start Date End Date Unknown, Unknown, PCP - General 03/28/23 Additional Source Comments The information contained in this document represents components of the legal health record. It is not the complete legal health record.[facility]
== END 2025-05-23 15:41 | disposition home or self-care (01) ==
PROVIDERS: PCP Student in an Organized Health Care Education/Training Program; Visit Provider Student in an Organized Health Care Education/Training Program
DX: Z00.00 Encounter for general adult medical examination without abnormal findings (principal); R21 Rash and other nonspecific skin eruption; F41.9 Anxiety disorder, unspecified; F32.A Depression, unspecified